=== PATIENT | female | born 1945 | race Two or more races ===

== ENCOUNTER 2021-09-07 10:18 | Emergency (ER) | payer OTHER ==
[~2021-09-07] VITALS: Ht 167.6 cm; Wt 89.4 kg
[2021-09-07] MEDS ORDERED: LEVEMIR100 UNIT/1 SQ (10:39)
[2021-09-07] MEDS ORDERED: HYDROCHLOROTH12.5 MG PO (10:40)
[2021-09-07] MEDS ORDERED: TRULICITY1.5 MG/0.5 SQ (10:40)
[2021-09-07] MEDS ORDERED: ECOTRIN81 MG (10:41)
[2021-09-07] MEDS ORDERED: ENALAPRIL MALEA10 MG (10:41)
[2021-09-07] MEDS ORDERED: PEPCID AC20 MG (10:41)
[2021-09-07] MEDS ORDERED: METFORMIN (10:42)
[2021-09-07] MEDS ORDERED: ACTOS15 MG (10:42)
[2021-09-07] MEDS ORDERED: HYDROXYZIN10 MG/5 ML (10:43)
== END 2021-09-07 15:43 | disposition home or self-care (01) ==
LOC: ER 10:18
DX: R10.31 Right lower quadrant pain (principal); M54.89 Other dorsalgia; I10 Essential (primary) hypertension; E11.9 Type 2 diabetes mellitus without complications; Z79.4 Long term (current) use of insulin